=== PATIENT | female | born 1940 | race Caucasian/White ===

== ENCOUNTER 2025-09-14 12:20 | Emergency (ER) | payer OTHER, SELFPAY ==
[2025-09-14] VITALS (7 sets, daily range): BP systolic 113–146; BP diastolic 49–70; PULSE 69–96; RESP 14–20; TEMP 36.6–37; O2SAT 97–100; BMI 19.5
[2025-09-14 13:08] LABS: Hematocrit 26.9 % (37-47); Hemoglobin 8.9 g/dL (12.0-15.0); Immature Granulocytes Count 0.110 X10^3/uL (0.0-0.0); Mean Corp Hgb Conc 33.1 g/dL (32-36); Mean Corpuscular Volume 81.3 fL (81-99); Mean Platelet Vol. 9.2 fl (6.2-12.0); NRBC Flagged by Analyzer 0 % (0-5); Platelet Count 546 K/mm3 (150-450); RBC Distribution Width CV 14.2 % (11.6-14.6); RBC Distribution Width SD 41.9 fl (35.1-43.9); Red Blood Count 3.31 M/mm3 (4.2-5.4); White Blood Count 18.6 K/mm3 (4.4-11.0)
[2025-09-14 13:14] LABS: Prothrombin Time (Protime)PT. 17.4 SECONDS (11.7-14.9)
[2025-09-14 13:54] LABS: AST(SGOT) 29 U/L (<=31); Alanine Aminotransfer ALT/SGPT 6 U/L (<=34); Albumin, Serum 3.1 g/dL (3.4-4.8); Alkaline Phosphatase 205 U/L (35-104); Anion Gap 11 (5-15); BUN 14 mg/dL (4-19); BUN/Creat Ratio 28.9 RATIO (10-20); Calcium,Total 8.8 mg/dL (7.6-11.0); Carbon Dioxide 24.6 mmol/L (21.0-32.0); Chloride 98 mmol/L (98-108); Estimated Creatinine Clearance 42.23 ml/min (50-250); Globulin 4.0 g/dL (2.2-4.2); Glucose 102 mg/dL (70-99); Potassium 3.9 mmol/L (3.3-5.1)
[2025-09-14 15:11] LABS: Mucous, Urine 0 SEEN /hpf (<or=2+); Squamous Epithelial Cells - UA 0 SEEN /hpf (5-10)
[2025-09-14 15:21] LABS: Color, Urine Yellow (Yellow); Glucose, Dipstick Normal (Normal); Ketone-Dipstick Negative (Negative); Leukocyte Esterase-Dipstick 25 /ul (Negative); Nitrite-Dipstick Negative (Negative); Occult Blood-Urine 25 /ul (Negative); Protein-Dipstick 30 mg/dl (Negative); Specific Gravity, Urine 1.010 (1.002-1.030); Urine Bilirubin Dipstick Negative (Negative)
[2025-09-14 15:38] LABS: Red Blood Cells-Urine 0-5 SEEN /hpf (0-5)
== END 2025-09-14 16:59 | disposition home or self-care (01) ==
PROVIDERS: Emergency Provider Emergency Medicine; PCP Nurse Practitioner Family; Visit Provider Emergency Medicine
DX: S09.90XA Unspecified injury of head, initial encounter (principal); R53.1 Weakness; W19.XXXA Unspecified fall, initial encounter; D64.9 Anemia, unspecified; D72.829 Elevated white blood cell count, unspecified
CPT/HCPCS: 70450; 71046; 80053; 81001; 82274; 85025; 85610; 86850; 86900; 86901; 87040; 93005; 99285; A4216